=== PATIENT | female | born 1995 ===

== ENCOUNTER 2022-02-24 23:14 | Emergency (ER) | payer OTHER ==
[2022-02-24] MEDS ORDERED: ALBUTEROL SO4 2.5/IPRATROPIUM 0.5 INH SOL 3 ML VIAL.NEB. NEB ONE (23:53)
[2022-02-25] MEDS ORDERED: ALBUTEROL SO4 2.5/IPRATROPIUM 0.5 INH SOL 3 ML VIAL.NEB. NEB ONE ×4 (00:36→03:05)
[2022-02-25] MEDS ORDERED: predniSONE 20 MG TABLET (UD) PO ONE (00:36)
[2022-02-25] MEDS ORDERED: predniSONE 20 MG TABLET (UD) ONE (00:43)
[2022-02-25 01:01] VITALS: BP 107/71; PULSE 84; RESP 18; TEMP 99.2; BMI 27.4
[2022-02-25 01:50] LABS: HEMATOCRIT 39.5 % (32.4-45.2); HEMOGLOBIN 13.8 GM/dL (10.7-15.3); MCH 30.9 pg (25.7-33.7); MEAN CELL VOLUME 88.3 fl (80-96); PLATELET COUNT 152 10^3/uL (134-434); RBC 4.47 M/mm3 (3.60-5.2); RDW 12.5 % (11.6-15.6); WHITE BLOOD COUNT 9.5 K/mm3 (4.0-10.0)
[2022-02-25 02:19] LABS: BASO % 0.7 % (0-2.0); EOS % 11.3 % (0-4.5); LYMPH % 40.9 % (8-40); MONO % 8.4 % (3.8-10.2); NEUT % 38.7 % (42.8-82.8)
== END 2022-02-25 03:12 | disposition home or self-care (01) ==
LOC: FER 23:14
PROC: 3E0F7GC Introduction of Other Therapeutic Substance into Respiratory Tract, Via Natural or Artificial Opening (ICD-10-PCS; principal; 2022-02-24)
DX: J45.901 Unspecified asthma with (acute) exacerbation (principal)
CPT/HCPCS: 36415; 71045-TC-FY; 81025; 84484; 85025; 85027; 85379; 93005; 99285-25

== ENCOUNTER 2022-06-24 12:26 | Emergency (ER) | payer OTHER ==
[2022-06-24 12:34] VITALS: BP 120/82; PULSE 69; RESP 20; TEMP 99; BMI 26.4
[2022-06-24] MEDS ORDERED: predniSONE 20 MG TABLET (UD) PO ONE (13:10)
[2022-06-24] MEDS ORDERED: predniSONE 20 MG TABLET (UD) ONE (13:20)
[2022-06-24] MEDS ORDERED: ALBUTEROL SO4 2.5/IPRATROPIUM 0.5 INH SOL 3 ML VIAL.NEB. NEB ONE (13:20)
[2022-06-24] MEDS: ALBUTEROL SO4 2.5/IPRATROPIUM 0.5 INH SOL 3 ML VIAL.NEB. NEB SCH ×2 (13:23→14:08)
== END 2022-06-24 14:24 | disposition home or self-care (01) ==
LOC: FER 12:26
PROC: 3E0F7GC Introduction of Other Therapeutic Substance into Respiratory Tract, Via Natural or Artificial Opening (ICD-10-PCS; principal; 2022-06-24)
DX: J45.901 Unspecified asthma with (acute) exacerbation (principal)
CPT/HCPCS: 99284-25

== ENCOUNTER 2022-08-21 20:46 | Emergency (ER) | payer OTHER ==
[2022-08-21] MEDS ORDERED: ALBUTEROL SO4 2.5/IPRATROPIUM 0.5 INH SOL 3 ML VIAL.NEB. NEB ONE ×2 (21:04→21:14)
[2022-08-21 21:27] VITALS: BP 117/80; PULSE 96; RESP 16; TEMP 97.8; BMI 27.3
[2022-08-21] MEDS ORDERED: predniSONE 20 MG TABLET (UD) PO ONE (21:43)
[2022-08-21] MEDS ORDERED: predniSONE 20 MG TABLET (UD) ONE (21:47)
== END 2022-08-21 23:08 | disposition home or self-care (01) ==
LOC: FER 20:46
PROC: 3E0F7GC Introduction of Other Therapeutic Substance into Respiratory Tract, Via Natural or Artificial Opening (ICD-10-PCS; principal; 2022-08-21)
DX: J45.21 Mild intermittent asthma with (acute) exacerbation (principal)
CPT/HCPCS: 0241U-QW; 71046-TC-FY; 81003; 81015; 93005; 99285-25